=== PATIENT | male | born 1960 | race Caucasian/White ===

== ENCOUNTER 2023-04-04 07:36 | Day surgery (SDC) | payer BC ==
[~2023-04-04 07:36] MED LIST: Acetaminophen 1,000 MG in Premix Bag 1 BAG IV SCH; Albuterol 0.083% 2.5 MG/3 ML Neb Soln NEB PRN; HYDROmorphone 1 MG/ML Syringe IVPUSH PRN; Lactated Ringers 1,000 ML IV SCH; Metoclopramide 10 MG/2 ML SDV IVPUSH PRN; Morphine 2 MG/ML SYRINGE IVPUSH PRN; Naloxone 0.4 MG/ML SDV IVPUSH PRN; Ondansetron 4 MG/2 ML SDV IVPUSH PRN; Pregabalin 75 MG Cap PO SCH; ceFAZolin 2 GM in Sodium Chloride 0.9% 50 ML IV ONE; droPERidol 5 MG/2 ML SDV IVPUSH PRN; fentaNYL 50 MCG/ML SDV IVPUSH PRN
[2023-04-04] MEDS ORDERED: Ropivacaine 0.5% 5 MG/ML 30 ML SDV ONE (08:49)
[2023-04-04] MEDS ORDERED: Bupivacaine 25%/EPINEPHrine/PF 30 ML ONE (08:49)
[2023-04-04] MEDS ORDERED: Lidocaine 2% 5 ML SDV ONE (09:10)
[2023-04-04] MEDS ORDERED: Water For Injection, Sterile 20 ML ONE (09:10)
[2023-04-04] MEDS ORDERED: fentaNYL 100 MCG/2 ML SDV ONE (09:10)
[2023-04-04] MEDS ORDERED: Sugammadex Sodium 200 MG/2 ML VIAL ONE (09:10)
[2023-04-04] MEDS ORDERED: Ondansetron 4 MG/2 ML SDV ONE (09:10)
[2023-04-04] MEDS ORDERED: Rocuronium Bromide 50 MG/5 ML Syringe ONE ×2 (09:10→10:36)
[2023-04-04] MEDS ORDERED: ceFAZolin 2 GM Vial ONE (09:10)
[2023-04-04] MEDS ORDERED: Propofol 200 MG/20 ML SDV ONE (09:10)
[2023-04-04] MEDS ORDERED: Dexamethasone 4 MG/ML 5 ML MDV ONE (09:10)
[2023-04-04] MEDS ORDERED: Bupivacaine 0.5% 30 ML SDV ONE (09:14)
[2023-04-04] MEDS ORDERED: ePHEDrine 50 MG/ML SDV ONE (09:59)
[2023-04-04] MEDS ORDERED: Ketorolac 30 MG/ML SDV ONE (11:25)
== END 2023-04-04 14:50 | disposition home or self-care (01) ==
LOC: MW.SDS 07:36 → MERGE 09:30 → MW.SDS 14:50
PROVIDERS: ATTEND Surgery
DX: K40.20 Bilateral inguinal hernia, without obstruction or gangrene, not specified as recurrent (principal); D17.6 Benign lipomatous neoplasm of spermatic cord; N40.0 Benign prostatic hyperplasia without lower urinary tract symptoms; Z91.012 Allergy to eggs; Z98.890 Other specified postprocedural states
CPT/HCPCS: 49650; A9270; C1781; J0131; J0690; J1100; J1885; J2405; J2704; J2795; J3010; J3490; J7120